=== PATIENT | male | born 1985 | race African-American/Black ===

== ENCOUNTER 2017-06-30 02:43 | Emergency (ER) | payer SELFPAY ==
[2017-06-30 02:51] VITALS: BMI 47.9
[2017-06-30] MEDS ORDERED: ASPIRIN PO ONE (03:01)
[2017-06-30] MEDS ORDERED: NITROSTAT SL PRN (03:01)
[2017-06-30] MEDS ORDERED: NITROSTAT SL ONE (03:09)
[2017-06-30] MEDS ORDERED: NS 1000 ML 1,000 ML ONE (03:09)
[2017-06-30] MEDS ORDERED: ASPIRIN ONE (03:09)
--- NOTE | 2017-06-30 03:11 | DR.GENAD ---
HPI - PCP Primary Care Physician: nfd - Complaint/Symptoms Chief Complaint Doctors Comments: Patient is complaining of left sided chest pain for the past hour. States onset of pain when setting around the house. States the pain is sharp on the left side radiating to his left shoulder and back. States the pain is 8 of 10. States he has a family history of heart disease. States he smokes 1/2 pack cigarettes daily but denies cocaine use. Patient states he fell a few weeks ago on his right leg and side. Patient denies cold, cough, fever, chills, nausea or vomiting. Patient states he has no local doctor and he has not had any aspirins or nitroglycerin today. States he was getting ready to lay down and started having chest pain and he smoke a "joint" to see if it would help the pain because he thought he had indigestion but it did not help. Chief Complaint:: c/o chest tightness and burning sensation in left chest with pain. Patient reports pain radiates to left back area. Pain started one hour [place]. Patient reports he smoked a joint 1 hour ago trying to relieve pain, with no relief. Patient denies hypertension and states his father of heart disease. Patient denies history of heart disease; however, he has no family doctor and has not seen anyone recently. 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 negative: See HPI, Chills, Diaphoresis, Fever, Malaise, Weakness, Irritable, Fatigue, Loss of Appetite, Other Eyes: No Symptoms Reported. negative: See HPI, Eye Pain, Blurred Vision, Tearing, Discharge, Photophobia, Diplopia, Other ENTM: No Symptoms Reported. negative: See HPI, Ear Pain, Ear Discharge, Pulling on Ears, Hearing Loss, Nose Pain, Nose Discharge, Epistaxis, Nose Congestion, Mouth Pain, Mouth Swelling, Loose Teeth, Drooling, Throat Pain, Throat Swelling, Ear Foreign Body Respiratoy: No Symptoms Reported. negative: See HPI, Productive Cough, Non- Productive Cough, Moist Cough, Dry Cough, Hacking Cough, Barking Cough, Brassy Cough, Orthopnea, Short of Breath, Stridor, Wheezing, Hemoptysis, Other Cardiovascular: No Symptoms Reported, Chest Pain. negative: See HPI, Edema, Palpitations, Syncope, Cyanosis, Skin Mottling, Other Gastrointestinal/Abdominal: No Symptoms Reported. negative: See HPI, Abdominal Pain, Constipation, Diarrhea, Nausea, Vomiting, Food Intolerance, Other Genitourinary: No Symptoms Reported Neurological: No Symptoms Reported Musculoskeletal: No Symptoms Reported, Chest wall Integumentary: No Symptoms Reported Hematologic/Lymphatic: No Symptoms Reported Endocrine: No Symptoms Reported Psychiatric: No Symptoms Reported PE - Vital Signs Vitals: Temperature 97.7 F Pulse Rate [Left Brachial] 65 Pulse Rate 83 Respiratory Rate 16 Blood Pressure [Left Arm] 122/62 Blood Pressure 116/63 O2 Sat by Pulse Oximetry 100 - General Limitations: No Limitations General Appearance: Alert, In Distress (mild), Obese - Head Head Exam: Normal Inspection, Atraumatic, Normocephalic - Eyes Eye exam: Normal Appearance, PERRL, EOMI. negative: Scleral Icterus, Conjunctival Injection, Nystagmus, Miosis, Mydrasis, Periorbital Swelling, Periorbital Tenderness, Other - ENT ENT Exam: Normal Exam, Normal Oropharynx, Normal External Ear Exam, Mucous Membranes Moist, TM's Normal Bilaterally External Ear Exam: Normal External Inspection TM/Canal Exam: Bilateral Normal Nose Exam: Normal Nose Exam Mouth Exam: Normal Inspection Throat Exam: Normal Inspection - Neck Neck Exam: Normal Inspection, Full ROM, Trachea Midline - Chest Chest Inspection: Normal Inspection, Symmetric Chest Wall Rise - Respiratory Respiratory Exam: Normal Lung Sounds Bilat Respiratory Exam: Bilateral Clear to Auscultation - Cardiovascular Cardiovascular Exam: Regular Rate, Normal Rhythm, Normal Heart Sounds - Abdominal Exam Abdominal Exam: Normal Inspection, Normal Bowel Sounds, Soft Abdominal Tenderness: LUQ, Epigastrium, Mild - Extremities Extremities Exam: Normal Inspection, Full ROM, Normal Capillary Refill. negative: Tenderness, Edema, Joint Swelling, Calf Tenderness, Other - Back Back Exam: Normal Inspection, Full ROM. negative: Tenderness, (R) CVA Tenderness, (L) CVA Tenderness, Muscle Spasm, Paraspinal Tenderness, Vertebral Tenderness, Rashes, (R) Sciatic Notch Tenderness, (L) Sciatic Notch Tendern, (R ) Straight Leg Raise, (L) Straight Leg Raise, Other - Neurologic Neurological Exam: Alert, Oriented X3, CN II-XII Intact, Reflexes Normal. negative: Normal Gait (gait not tested) - Psychiatric Psychiatric Exam: Normal Affect, Normal Mood. negative: Depressed, Agitated, Anxious, Flat Affect, Manic, Homicidal Ideation, Suicidal Ideation, Other - Skin Skin Exam: Warm, Dry, Intact, Normal Color ROR - Labs Reviewed Laboratory Results Reviewed?: Yes (all labs and xray results reviewed and discussed with patient) Result Diagrams: 06/30/17 03:15 06/30/17 03:15 Laboratory: WBC 13.7 X10^3/uL (3.6-10.0) H 06/30/17 03:15 RBC 4.61 X10^6/uL (4.7-6.0) L 06/30/17 03:15 Hgb 12.7 g/dL (13.5-18.0) L 06/30/17 03:15 Hct 38.5 % (42.0-54.0) L 06/30/17 03:15 MCV 83.5 fL (80.0-100.0) 06/30/17 03:15 MCH 27.5 pg (27.0-34.0) 06/30/17 03:15 MCHC 33.0 g/dL (33.0-35.0) 06/30/17 03:15 RDW 14.7 % (11.6-16.5) 06/30/17 03:15 Plt Count 286 X10^3/uL (150.0-450.0) 06/30/17 03:15 MPV 9.2 fL (7.4-11.0) 06/30/17 03:15 Neut % 59.8 % (42.0-75.0) 06/30/17 03:15 Lymph % 29.5 % (21.0-51.0) 06/30/17 03:15 [place] % 7.7 % (0.0-13.0) 06/30/17 03:15 Eos % 1.7 % (0.9-2.9) 06/30/17 03:15 Baso % 1.3 % (0.2-1.0) H 06/30/17 03:15 Neut # 8.2 x10^3/uL (2.2-4.8) H 06/30/17 03:15 Lymph # 4.0 X10^3/uL (1.3-2.9) H 06/30/17 03:15 [place] # 1.1 x10^3/uL (0.3-0.8) H 06/30/17 03:15 Eos # 0.2 x10^3/uL (0.0-0.2) 06/30/17 03:15 Baso # 0.2 X10^3/uL (0.0-0.1) H 06/30/17 03:15 Absolute Nucleated RBC 0.0 /100WBC 06/30/17 03:15 INR Target Range - 06/30/17 03:15 INR 0.94 (0.8-1.3) 06/30/17 03:15 PTT 29.7 SECONDS (22.9-36.5) 06/30/17 03:15 PTT Comment - 06/30/17 03:15 D-Dimer < 100 ng/mL (0-400) 06/30/17 03:15 Sodium 139 mmol/L (136-145) 06/30/17 03:15 Corrected Sodium TNP 06/30/17 03:15 Potassium 4.2 mmol/L (3.5-5.1) 06/30/17 03:15 Chloride 103 mmol/L (98-107) 06/30/17 03:15 Carbon Dioxide 27.3 mmol/L (21-32) 06/30/17 03:15 BUN 9 mg/dL (7-18) 06/30/17 03:15 Creatinine 0.91 mg/dL (0.70-1.30) 06/30/17 03:15 Est GFR (MDRD) Af Amer > 60 (>60) 06/30/17 03:15 Est GFR (MDRD) Non-Af > 60 (>60) 06/30/17 03:15 Glucose 90 mg/dL (65-99) 06/30/17 03:15 Calcium 8.7 mg/dL (8.5-10.1) 06/30/17 03:15 Corrected Calcium 9.3 mg/dL (8.5-10.1) 06/30/17 03:15 Magnesium 1.9 mg/dL (1.7-2.9) 06/30/17 03:15 Total Bilirubin 0.20 mg/dL (0.2-1.0) 06/30/17 03:15 AST 19 Units/L (15-37) 06/30/17 03:15 ALT 24 Units/L (12-78) 06/30/17 03:15 Alkaline Phosphatase 79 Units/L (46-116) 06/30/17 03:15 Creatine Kinase 138 Units/L (39-308) 06/30/17 03:15 CK-MB (CK-2) 1.5 ng/mL (0-4.0) 06/30/17 03:15 CK/CKMB % Calc 1.1 % (<4) 06/30/17 03:15 Troponin I < 0.02 ng/mL (0-1.5) 06/30/17 03:15 Total Protein 7.0 g/dL (6.4-8.2) 06/30/17 03:15 Albumin 3.3 g/dL (3.4-5.0) L 06/30/17 03:15 Globulin 3.7 g/dL (2.5-4.5) 06/30/17 03:15 Albumin/Globulin Ratio 0.9 Ratio (1.1-2.1) L 06/30/17 03:15 Specimen Type Clean catch urine 06/30/17 03:45 Urine Color Dark yellow (YELLOW) 06/30/17 03:45 Urine Appearance Clear (CLEAR) 06/30/17 03:45 Urine pH 6.0 (5.0 - 8.0) 06/30/17 03:45 Ur Specific [place] 1.025 (1.000-1.030) 06/30/17 03:45 Urine Protein 1+ (NEGATIVE) 06/30/17 03:45 Urine Glucose (UA) Negative (NEGATIVE) 06/30/17 03:45 Urine Ketones 1+ (NEGATIVE) 06/30/17 03:45 Urine Occult Blood Negative (NEGATIVE) 06/30/17 03:45 Urine Nitrite Negative (NEGATIVE) 06/30/17 03:45 Urine Bilirubin Negative (NEGATIVE) 06/30/17 03:45 Urine Urobilinogen 1+ (NORMAL) 06/30/17 03:45 Ur Leukocyte Esterase 1+ (NEGATIVE) 06/30/17 03:45 Urine RBC None seen /HPF (NEGATIVE) 06/30/17 03:45 Urine WBC 0-1 /HPF (NEGATIVE) 06/30/17 03:45 Ur Squamous Epith Cells Few /HPF (NEGATIVE) 06/30/17 03:45 Calcium Oxalate Crystal Few /HPF (NEGATIVE) 06/30/17 03:45 Urine Bacteria Trace /HPF (NEGATIVE) 06/30/17 03:45 Urine Mucus Few /HPF (NEGATIVE) 06/30/17 03:45 Ur Culture Indicated? No/not indicated 06/30/17 03:45 Urine Opiates Screen Negative (NEG=<300) 06/30/17 03:45 Urine Methadone Screen Negative (NEG=<300) 06/30/17 03:45 Ur Barbiturates Screen Negative (NEG=<200) 06/30/17 03:45 Ur Phencyclidine Scrn Negative (NEG=<25) 06/30/17 03:45 Ur Amphetamines Screen Negative (NEG=<1000) 06/30/17 03:45 U Benzodiazepines Scrn Negative (NEG=<200) 06/30/17 03:45 Urine Cocaine Screen Negative (NEG=<300) 06/30/17 03:45 U Marijuana (THC) Screen Positive (NEG=<50) A 06/30/17 03:45 - XRAY XRAY Interpreted by: Radiologist (CXR: No acute ches process) - EKG Rate: 64 Ubly: Normal Rhythm: NSR Block: None Hypertrophy: None ST: Normal, Nonsp (early repolarization pattern) - Diagnosis Discharge Problem: Chest pain in adult, Anterior chest wall pain, Marijuana abuse, Musculoskeletal chest pain - Discharge Plan Disposition: 01 HOME, SELF-CARE Condition: Stable Prescriptions: Ibuprofen [MOTRIN TAB 800 MG *] 800 mg PO BID PRN #30 tab PRN Reason: Pain/Inflammation - Follow ups/Referrals Follow ups/Referrals: NFD,None [Primary Care Provider] - 3 days CAROLANN MORALES [STAFF PHYSICIAN] - 3 days - Instructions Instructions: Musculoskeletal Pain, Cannabis Use Disorder
[2017-06-30 03:34] LABS: BASOPHILS # (AUTO) 0.2 X10^3/uL (0.0-0.1); BASOPHILS % (AUTO) 1.3 % (0.2-1.0); EOSINOPHILS # (AUTO) 0.2 x10^3/uL (0.0-0.2); EOSINOPHILS % (AUTO) 1.7 % (0.9-2.9); HEMATOCRIT 38.5 % (42.0-54.0); HEMOGLOBIN 12.7 g/dL (13.5-18.0); LYMPHOCYTES % (AUTO) 29.5 % (21.0-51.0); MEAN CORPUSCULAR HEMOGLOBIN 27.5 pg (27.0-34.0); MEAN CORPUSCULAR VOLUME 83.5 fL (80.0-100.0); MEAN PLATELET VOLUME 9.2 fL (7.4-11.0); MONOCYTES # (AUTO) 1.1 x10^3/uL (0.3-0.8); MONOCYTES % (AUTO) 7.7 % (0.0-13.0); NEUTROPHILS # (AUTO) 8.2 x10^3/uL (2.2-4.8); NEUTROPHILS % (AUTO) 59.8 % (42.0-75.0); PLATELET COUNT 286 X10^3/uL (150.0-450.0); RED BLOOD COUNT 4.61 X10^6/uL (4.7-6.0); RED CELL DISTRIBUTION WIDTH 14.7 % (11.6-16.5); WHITE BLOOD COUNT 13.7 X10^3/uL (3.6-10.0)
[2017-06-30 03:47] LABS: BLOOD UREA NITROGEN 9 mg/dL (7-18); CALCIUM 8.7 mg/dL (8.5-10.1); CARBON DIOXIDE 27.3 mmol/L (21-32); CHLORIDE 103 mmol/L (98-107); CREATININE 0.91 mg/dL (0.70-1.30); SODIUM 139 mmol/L (136-145); TROPONIN I < 0.02 ng/mL (0-1.5); eGFR BLACK RACES > 60 (>60); eGFR NON BLACK RACES > 60 (>60)
[2017-06-30 03:51] LABS: ALANINE AMINOTRANSFERASE 24 Units/L (12-78); ALBUMIN 3.3 g/dL (3.4-5.0); ALKALINE PHOSPHATASE 79 Units/L (46-116); ASPARTATE AMINO TRANSFERASE 19 Units/L (15-37); CKMB % 1.1 % (<4); COR CA(FOR HYPOALB) 9.3 mg/dL (8.5-10.1); CREATINE KINASE 138 Units/L (39-308); CREATINE KINASE MB 1.5 ng/mL (0-4.0); MAGNESIUM 1.9 mg/dL (1.7-2.9)
[2017-06-30] MEDS ORDERED: NS 1000 ML 1,000 ML IV SCH (04:00)
--- NOTE | 2017-06-30 04:02 | RAD ---
Chest AP portable Indication: Chest pain Findings: There is no pneumothorax or effusion. There is no consolidation. Heart size is normal. Over lying monitoring leads obscure minimal detail. Impression: No acute chest process. Reported By:
[2017-06-30 04:03] LABS: BILIRUBIN,URINE NEGATIVE (NEGATIVE); BLOOD/HEMOGLOBIN,URINE NEGATIVE (NEGATIVE); GLUCOSE, URINE NEGATIVE (NEGATIVE); KETONES,URINE 1+ (NEGATIVE); LEUKOCYTE ESTERASE ,URINE 1+ (NEGATIVE); NITRITES,URINE NEGATIVE (NEGATIVE); PROTEIN,URINE 1+ (NEGATIVE); UROBILINOGEN,URINE 1+ (NORMAL)
[2017-06-30 04:17] LABS: APPEARANCE,URINE CLEAR (CLEAR); BACTERIA,URINE TRACE /HPF (NEGATIVE); CALCIUM OXALATE CRYSTALS,UR FEW /HPF (NEGATIVE); COLOR,URINE DARK YELLOW (YELLOW); MUCUS,URINE FEW /HPF (NEGATIVE); RBC,URINE NONE SEEN /HPF (NEGATIVE); SQUAMOUS EPITHELIAL CELL,UR FEW /HPF (NEGATIVE)
[2017-06-30 04:27] VITALS: BP 122/62
[2017-06-30] MEDS ORDERED: MOTRIN TAB 800 MG PO STA (04:36)
[2017-06-30] MEDS ORDERED: ZANTAC PO STA (04:36)
[2017-06-30] MEDS ORDERED: MOTRIN TAB 800 MG PO ONE (04:38)
[2017-06-30] MEDS ORDERED: ZANTAC PO ONE (04:38)
== END 2017-06-30 04:47 | disposition home or self-care (01) ==
LOC: ER 02:43
DX: R07.89 Other chest pain (principal); F12.10 Cannabis abuse, uncomplicated
CPT/HCPCS: 36415; 71045; 80053; 80307; 81001; 82550; 82553; 83735; 84484; 85025; 85378; 85610; 85730; 93005; 93010; 96365; 96374; 99283; A4222; G0434

== ENCOUNTER 2017-08-13 19:18 | Emergency (ER) | payer SELFPAY ==
[2017-08-13 19:29] VITALS: BP 128/65; BMI 42.2
--- NOTE | 2017-08-13 19:48 | DR.GENAD ---
HPI - PCP Primary Care Physician: NFD - Complaint/Symptoms Chief Complaint Doctors Comments: History as stated. He reports that he went to work today and was told to get the knee evaluated prior to returning. Patient has a history of [place]"s disease of the right knee with significant bowing with ambulation. Chief Complaint:: Fell on porch yesterday morning in the rain. Fell on right side. Feeling pain in right knee, right lower back, and right shoulder. Self Treatment fo Chief Complaint: Took Tylenol x 4, Advil x 4, and Ibuprofen 800 x 6. Last Ibuprofen 800 at 2 PM today. - Source History Provided: Patient - Mode of Arrival Mode of Arrival: Ambulatory - Timing Onset of Chief Complaint: 08/12/17 PMH - PMH Past Medical History: No Past Medical History Comment: Chronic knee pain Past Surgical History: No - Family History History of Family Medical Conditions: Yes Family Medical History: Diabetes Mellitus, Cancer, Heart Failure, Hypertension - Social History Do you use any recreational Drugs:: Yes ([facility]) - infectious screening Have you traveled outside the country in the last 6 months?: No ROS - Review of Systems Eyes: No Symptoms Reported ENTM: No Symptoms Reported Respiratoy: No Symptoms Reported Cardiovascular: No Symptoms Reported Gastrointestinal/Abdominal: No Symptoms Reported Genitourinary: No Symptoms Reported Neurological: No Symptoms Reported Musculoskeletal: No Symptoms Reported Integumentary: No Symptoms Reported Hematologic/Lymphatic: No Symptoms Reported Endocrine: No Symptoms Reported Psychiatric: No Symptoms Reported All Other Systems: Reviewed and Negative PE - Vital Signs Vitals: Temperature 98.8 F Pulse Rate 81 Respiratory Rate 20 Blood Pressure [Left Arm] 122/62 Blood Pressure 128/65 O2 Sat by Pulse Oximetry 96 - General General Appearance: Alert, In No Apparent Distress - Head Head Exam: Normal Inspection, Atraumatic - Eyes Eye exam: Normal Appearance, PERRL, EOMI - ENT ENT Exam: Normal Exam External Ear Exam: Normal External Inspection TM/Canal Exam: Bilateral Normal Nose Exam: Normal Nose Exam Mouth Exam: Normal Inspection Throat Exam: Normal Inspection - Neck Neck Exam: Normal Inspection, Full ROM - Chest Chest Inspection: Normal Inspection - Respiratory Respiratory Exam: Normal Lung Sounds Bilat Respiratory Exam: Bilateral Clear to Auscultation - Cardiovascular Cardiovascular Exam: Regular Rate - Abdominal Exam Abdominal Exam: Normal Inspection, Normal Bowel Sounds Abdominal Tenderness: negative: RUQ, RLQ, LUQ, LLQ, Epigastrium, Suprapubic, Diffuse, Mild, Moderate, Severe, Other - Extremities Extremities Exam: Normal Inspection, Other (right knee bowing with pressure) - Back Back Exam: Normal Inspection - Neurologic Neurological Exam: Alert, Oriented X3, CN II-XII Intact - Psychiatric Psychiatric Exam: Normal Affect - Skin Skin Exam: Warm, Dry, Intact ROR - XRAY XRAY Interpreted by: Radiologist (Right knee: No acute fracture or dislocation is identified within the right knee; however, evaluation is slightly llimited by obliqueity of lateral projection. There is severe deformity of the right knee mostl severly affecting the medial femorotibial compartment with downward sloping of the medial tribial plateau and large osteochondral body within the medial femorotibial compartment consistent with sequela of longstanding Bloung' s disease. There is moderate tricompartmental osteoarthrosis. There is no localizing soft tissue swelling. Impression: Moderate tricompartmental osteoarthrosis with radiographic findings most consistent with sequela of chronic Jack's disease or potentially from sequela of previous injury medial tibial plateau fracture. 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
--- NOTE | 2017-08-13 20:20 | RAD ---
Right hip-two views Indication: Pain after fall to the right hip. Findings: There is bilateral mild hip joint degenerative change. There is or malalignment. Mild SI debbie int DJD noted. Impression: No acute right hip fracture Reported By:
--- NOTE | 2017-08-13 20:20 | RAD ---
Two views of the right knee Indication: Knee pain after fall from porch Findings: No acute fracture or dislocation is identified within the right knee; however, evaluation i s slightly limited by obliquity of lateral projection. There is severe deformity of the right knee mo st severely affecting the medial femorotibial compartment with downward sloping of the medial tibial plateau and large osteochondral body within the medial femorotibial compartment consistent with [place] of longstanding Jack's disease. There is moderate tricompartmental osteoarthrosis. There is no l ocalizing soft tissue swelling. Impression: 1.Limited evaluation of the knee secondary to obliquity demonstrates no acute fracture or dislocation . 2. Moderate tricompartmental osteoarthrosis with radiographic findings most consistent with sequela o f chronic Jack's disease or potentially from sequela of previous injury/medial tibial plateau fract ure. Reported By:
== END 2017-08-13 20:55 | disposition home or self-care (01) ==
LOC: ER 19:35
DX: M92.51 Juvenile osteochondrosis of proximal tibia (principal); M16.0 Bilateral primary osteoarthritis of hip; W19.XXXA Unspecified fall, initial encounter; Y92.9 Unspecified place or not applicable
CPT/HCPCS: 73501; 73560; 99282

== ENCOUNTER 2017-09-02 17:54 | Emergency (ER) | payer SELFPAY ==
[2017-09-02 17:58] VITALS: BP 122/61; BMI 42.8
--- NOTE | 2017-09-02 18:49 | DR.GENAD ---
HPI - PCP Primary Care Physician: NFD - HPI Comment HPI Comment: GETTING WORSE. PATIENT IS WEAK AND NOT TOLERATING FOOD INTAKE. DENIES FEVER. - Complaint/Symptoms Chief Complaint Doctors Comments: N/V/D AND HEADACHE AND DIZZINESS TIMES ONE DAY. Chief Complaint:: PT. C/O N/V/D, HEADACHE, DIZZINESS & COLD CHILLS. - Nurses notes reviewed Nurses Notes Review: Yes - Source History Provided: Patient - Mode of Arrival Mode of Arrival: Ambulatory - Timing Onset of Chief Complaint: 09/01/17 Came on: Suddenly - Duration Duration: Constant Duration: Days - Severity Severity: Moderate PMH - PMH Past Medical History: No Past Surgical History: No Surgical History: No History - Family History History of Family Medical Conditions: Yes Family Medical History: Diabetes Mellitus, Cancer, Heart Failure, Hypertension - Social History Does patient currently use any type of tobacco product: Yes Have you used tobacco products in the last 12 months: Yes Type of Tobacco Use: Cigarettes Does any household member use tobacco: Yes Alcohol Use: Occasionally Do you use any recreational Drugs:: No Lives With: Alone Lives Where: Home - infectious screening In the last 2 months have you had wt loss of >10#?: NO Have you had fever, night sweats or hemotysis?: No Have you traveled outside the country in the last 6 months?: No Isolation: Standard ROS - Review of Systems Constitutional: Weakness, Fatigue, Loss of Appetite. negative: Chills, Fever Eyes: No Symptoms Reported. negative: Eye Pain, Discharge ENTM: negative: Ear Pain, Nose Discharge, Nose Congestion, Throat Pain Respiratoy: No Symptoms Reported. negative: Productive Cough, Non-Productive Cough, Short of Breath, Wheezing, Hemoptysis Cardiovascular: No Symptoms Reported, Chest Pain Gastrointestinal/Abdominal: Abdominal Pain, Diarrhea, Nausea, Vomiting Genitourinary: No Symptoms Reported. negative: Dysuria, Frequency, Hematuria Neurological: Headache, Weakness, Dizziness Musculoskeletal: Muscle Pain Integumentary: No Symptoms Reported Hematologic/Lymphatic: No Symptoms Reported Endocrine: No Symptoms Reported All Other Systems: Reviewed and Negative PE - Vital Signs Vitals: Temperature 98.7 F Pulse Rate 57 Respiratory Rate 20 Blood Pressure [Left Arm] 122/62 Blood Pressure 122/61 O2 Sat by Pulse Oximetry 100 - General Limitations: No Limitations General Appearance: Alert - Head Head Exam: Normal Inspection - Eyes Eye exam: Normal Appearance - ENT ENT Exam: Normal External Ear Exam External Ear Exam: Normal External Inspection TM/Canal Exam: Bilateral Normal Nose Exam: Normal Nose Exam Mouth Exam: Normal Inspection Throat Exam: Normal Inspection - Neck Neck Exam: Trachea Midline - Chest Chest Inspection: Symmetric Chest Wall Rise - Respiratory Respiratory Exam: Normal Lung Sounds Bilat Respiratory Exam: Bilateral Clear to Auscultation - Cardiovascular Cardiovascular Exam: Regular Rate, Normal Rhythm, Normal Heart Sounds - Abdominal Exam Abdominal Exam: Normal Bowel Sounds, Soft, Tenderness Abdominal Tenderness: Diffuse, Moderate - Extremities Extremities Exam: Normal Inspection - Back Back Exam: Normal Inspection - Neurologic Neurological Exam: Alert, Oriented X3 - Psychiatric Psychiatric Exam: Normal Affect, Normal Mood - Skin Skin Exam: Normal Color MDM - Differential Diagnosis Differential Diagnosis: DEHYDRATION, GASTROENTERITIS, BOWEL OBSTRUCTION, DIVERTICULITIS, UTI. Course - Treatment Treatment: SEE ORDERS. - Education/Counseling Education/Counseling: Patient, Education Educated On: Treatment, Diagnosis, Needs for Follow Up ROR - Labs Reviewed Laboratory Results Reviewed?: Yes Result Diagrams: 09/02/17 18:55 09/02/17 18:55 Laboratory: WBC 10.4 X10^3/uL (3.6-10.0) H 09/02/17 18:55 RBC 4.47 X10^6/uL (4.7-6.0) L 09/02/17 18:55 Hgb 12.9 g/dL (13.5-18.0) L 09/02/17 18:55 Hct 38.6 % (42.0-54.0) L 09/02/17 18:55 MCV 86.5 fL (80.0-100.0) 09/02/17 18:55 MCH 28.9 pg (27.0-34.0) 09/02/17 18:55 MCHC 33.4 g/dL (33.0-35.0) 09/02/17 18:55 RDW 15.9 % (11.6-16.5) 09/02/17 18:55 Plt Count 296 X10^3/uL (150.0-450.0) 09/02/17 18:55 MPV 8.6 fL (7.4-11.0) 09/02/17 18:55 Neut % (Auto) 60.6 % (42.0-75.0) 09/02/17 18:55 Lymph % (Auto) 30.2 % (21.0-51.0) 09/02/17 18:55 [place] % (Auto) 6.8 % (0.0-13.0) 09/02/17 18:55 Eos % (Auto) 1.5 % (0.9-2.9) 09/02/17 18:55 Baso % (Auto) 0.9 % (0.2-1.0) 09/02/17 18:55 Neut # (Auto) 6.3 x10^3/uL (2.2-4.8) H 09/02/17 18:55 Lymph # (Auto) 3.1 X10^3/uL (1.3-2.9) H 09/02/17 18:55 [place] # (Auto) 0.7 x10^3/uL (0.3-0.8) 09/02/17 18:55 Eos # (Auto) 0.2 x10^3/uL (0.0-0.2) 09/02/17 18:55 Baso # (Auto) 0.1 X10^3/uL (0.0-0.1) 09/02/17 18:55 Absolute Nucleated RBC 0.0 /100WBC 09/02/17 18:55 Sodium 144 mmol/L (136-145) 09/02/17 18:55 Corrected Sodium TNP 09/02/17 18:55 Potassium 3.9 mmol/L (3.5-5.1) 09/02/17 18:55 Chloride 108 mmol/L (98-107) H 09/02/17 18:55 Carbon Dioxide 28.9 mmol/L (21-32) 09/02/17 18:55 BUN 7 mg/dL (7-18) 09/02/17 18:55 Creatinine 0.95 mg/dL (0.70-1.30) 09/02/17 18:55 Est GFR (MDRD) Af Amer > 60 (>60) 09/02/17 18:55 Est GFR (MDRD) Non-Af > 60 (>60) 09/02/17 18:55 Glucose 84 mg/dL (65-99) 09/02/17 18:55 Calcium 8.9 mg/dL (8.5-10.1) 09/02/17 18:55 Corrected Calcium TNP 09/02/17 18:55 Total Bilirubin 0.60 mg/dL (0.2-1.0) 09/02/17 18:55 AST 15 Units/L (15-37) 09/02/17 18:55 ALT 26 Units/L (12-78) 09/02/17 18:55 Alkaline Phosphatase 77 Units/L (46-116) 09/02/17 18:55 Total Protein 7.3 g/dL (6.4-8.2) 09/02/17 18:55 Albumin 3.4 g/dL (3.4-5.0) 09/02/17 18:55 Globulin 3.9 g/dL (2.5-4.5) 09/02/17 18:55 Albumin/Globulin Ratio 0.9 Ratio (1.1-2.1) L 09/02/17 18:55 Amylase 44 Units/L (25-115) 09/02/17 18:55 Lipase 59 Units/L (73-393) L 09/02/17 18:55 Specimen Type Clean catch urine 09/02/17 19:21 Urine Color Dark yellow (YELLOW) 09/02/17 19:21 Urine Appearance Clear (CLEAR) 09/02/17 19:21 Urine pH 6.0 (5.0 - 8.0) 09/02/17 19:21 Ur Specific [place] 1.020 (1.000-1.030) 09/02/17 19:21 Urine Protein 1+ (NEGATIVE) 09/02/17 19:21 Urine Glucose (UA) Negative (NEGATIVE) 09/02/17 19:21 Urine Ketones 1+ (NEGATIVE) 09/02/17 19:21 Urine Occult Blood Negative (NEGATIVE) 09/02/17 19:21 Urine Nitrite Negative (NEGATIVE) 09/02/17 19:21 Urine Bilirubin 1+ (NEGATIVE) 09/02/17 19:21 Urine Urobilinogen 2+ (NORMAL) 09/02/17 19:21 Ur Leukocyte Esterase 1+ (NEGATIVE) 09/02/17 19:21 Urine RBC 0-2 /HPF (NONE SEEN) 09/02/17 19:21 Urine WBC 5-10 /HPF (NONE SEEN) 09/02/17 19:21 Ur Squamous Epith Cells Rare /HPF (NEGATIVE) 09/02/17 19:21 Urine Bacteria Trace /HPF (NEGATIVE) 09/02/17 19:21 Urine Mucus Many /HPF (NEGATIVE) 09/02/17 19:21 Ur Culture Indicated? Yes/culture set up 09/02/17 19:21 - XRAY XRAY Interpreted by: Radiologist XRAY Findings: REPORT DISCUSS WITH PATIENT. - Diagnosis Discharge Problem: Gastroenteritis Abdominal pain Qualifiers: Abdominal location: generalized Qualified Code(s): R10.84 - Generalized abdominal pain UTI (urinary tract infection) Qualifiers: Urinary tract infection type: site unspecified Hematuria presence: without hematuria Qualified Code(s): N39.0 - Urinary tract infection, site not specified - Discharge Plan Disposition: HOME, SELF-CARE Condition: Stable Prescriptions: Dicyclomine HCl [Bentyl Cap 10 mg] 10 mg PO TID PRN #15 cap PRN Reason: Ondansetron [Zofran ODT 8 mg] 8 mg PO Q8H PRN #12 tab PRN Reason: Nausea/Vomiting Sulfamethoxazole-Trimethoprim [BACTRIM DS TAB 800/160 MG *] 1 tab PO BID #20 tab - Follow ups/Referrals Follow ups/Referrals: NFD,None [Primary Care Provider] - 3 days - Instructions Instructions: Viral Gastroenteritis, Adult, [id number], Urinary Tract Infection, Adult, [id number], Abdominal Pain, Adult, [id number] Additional Instructions: RETURN TO ED IF WORSE.
[2017-09-02] MEDS ORDERED: PEPCID 20 MG IV PREMIX* 20 MG/50 ML BAG IV ONE ×2 (18:50→18:59)
[2017-09-02] MEDS ORDERED: NS 1000 ML 1,000 ML IV ONE (18:50)
[2017-09-02] MEDS ORDERED: ZOFRAN INJ 4 MG VIAL IVP ONE (18:50)
[2017-09-02] MEDS ORDERED: ZOFRAN INJ 4 MG VIAL ONE (18:59)
[2017-09-02] MEDS ORDERED: NS 1000 ML 1,000 ML ONE (18:59)
[2017-09-02 19:06] LABS: BASOPHILS # (AUTO) 0.1 X10^3/uL (0.0-0.1); BASOPHILS % (AUTO) 0.9 % (0.2-1.0); EOSINOPHILS # (AUTO) 0.2 x10^3/uL (0.0-0.2); EOSINOPHILS % (AUTO) 1.5 % (0.9-2.9); HEMATOCRIT 38.6 % (42.0-54.0); HEMOGLOBIN 12.9 g/dL (13.5-18.0); LYMPHOCYTES # (AUTO) 3.1 X10^3/uL (1.3-2.9); LYMPHOCYTES % (AUTO) 30.2 % (21.0-51.0); MEAN CORPUSCULAR HEMOGLOBIN 28.9 pg (27.0-34.0); MEAN CORPUSCULAR HGB CONC 33.4 g/dL (33.0-35.0); MEAN CORPUSCULAR VOLUME 86.5 fL (80.0-100.0); MEAN PLATELET VOLUME 8.6 fL (7.4-11.0); MONOCYTES # (AUTO) 0.7 x10^3/uL (0.3-0.8); MONOCYTES % (AUTO) 6.8 % (0.0-13.0); NEUTROPHILS # (AUTO) 6.3 x10^3/uL (2.2-4.8); NEUTROPHILS % (AUTO) 60.6 % (42.0-75.0); PLATELET COUNT 296 X10^3/uL (150.0-450.0); RED BLOOD COUNT 4.47 X10^6/uL (4.7-6.0); RED CELL DISTRIBUTION WIDTH 15.9 % (11.6-16.5); WHITE BLOOD COUNT 10.4 X10^3/uL (3.6-10.0)
[2017-09-02 19:15] LABS: ALANINE AMINOTRANSFERASE 26 Units/L (12-78); ALBUMIN 3.4 g/dL (3.4-5.0); ALKALINE PHOSPHATASE 77 Units/L (46-116); AMYLASE 44 Units/L (25-115); ASPARTATE AMINO TRANSFERASE 15 Units/L (15-37); BLOOD UREA NITROGEN 7 mg/dL (7-18); CALCIUM 8.9 mg/dL (8.5-10.1); CARBON DIOXIDE 28.9 mmol/L (21-32); CHLORIDE 108 mmol/L (98-107); CREATININE 0.95 mg/dL (0.70-1.30); LIPASE 59 Units/L (73-393); SODIUM 144 mmol/L (136-145); TOTAL PROTEIN 7.3 g/dL (6.4-8.2); eGFR BLACK RACES > 60 (>60); eGFR NON BLACK RACES > 60 (>60)
[2017-09-02 19:27] LABS: BILIRUBIN,URINE 1+ (NEGATIVE); BLOOD/HEMOGLOBIN,URINE NEGATIVE (NEGATIVE); GLUCOSE, URINE NEGATIVE (NEGATIVE); KETONES,URINE 1+ (NEGATIVE); LEUKOCYTE ESTERASE ,URINE 1+ (NEGATIVE); NITRITES,URINE NEGATIVE (NEGATIVE); PROTEIN,URINE 1+ (NEGATIVE); UROBILINOGEN,URINE 2+ (NORMAL)
[2017-09-02 19:29] LABS: APPEARANCE,URINE CLEAR (CLEAR); COLOR,URINE DARK YELLOW (YELLOW)
[2017-09-02 19:35] LABS: BACTERIA,URINE TRACE /HPF (NEGATIVE); RBC,URINE 0-2 /HPF (NONE SEEN); SQUAMOUS EPITHELIAL CELL,UR RARE /HPF (NEGATIVE)
[2017-09-02 19:36] LABS: MUCUS,URINE MANY /HPF (NEGATIVE)
--- NOTE | 2017-09-02 19:48 | RAD ---
ACUTE ABDOMINAL SERIES CLINICAL HISTORY: 31-year-old male with abdominal pain, vomiting and headache with chills. COMPARISON: None. FINDINGS: PA chest radiograph demonstrates normal cardiopericardial silhouette. There is no focal consolidation , pleural effusion or pneumothorax. Pulmonary vascularity is normal. Abdominal radiographs demonstrate a nonobstructive bowel gas pattern. Gas and stool are seen througho ut the colon. There is no small bowel distention. There is no radiographic evidence of pneumoperitone um. Imaged osseous structures are intact. Soft tissues are unremarkable. IMPRESSION: 1. No acute cardiopulmonary process. 2. Nonobstructive bowel gas pattern without radiographic evidence of pneumoperitoneum. Reported By:
== END 2017-09-02 20:55 | disposition home or self-care (01) ==
LOC: ER 18:00
DX: K52.89 Other specified noninfective gastroenteritis and colitis (principal); R10.84 Generalized abdominal pain; N39.0 Urinary tract infection, site not specified
CPT/HCPCS: 36415; 74022; 80053; 81001; 82150; 83690; 85025; 87086; 96365; 96374; 96375; 99282; 99283; A4222; S0028; J2405